=== PATIENT | female | born 1970 | race Caucasian/White ===

== ENCOUNTER → 2016-12-12 | Outpatient (CLI) | payer OTHER ==
--- NOTE | 2016-12-13 11:46 | MR ---
MRI of the Right Elbow, Without Contrast HISTORY: Evaluate for lateral epicondylitis. TECHNIQUE: Axial, sagittal, and coronal MR sequences of the right elbow are obtained. FINDINGS: There is mild focal increased T2 signal within the common extensor tendon at the lateral ep icondylar origin compatible with tendinosis and minimal interstitial partial tear. The radial collate ral ligament is intact. There is moderate focal chondral thinning and subchondral bone marrow change involving the posterior articular cartilage of the radial head, grade 2 severity. Medially, the ulnar collateral ligament is intact. The common flexor tendon is intact. Articular cart ilage of the medial compartment of the elbow is normal. Distal triceps and biceps tendons are intact. The lateral ulnar collateral ligament is intact. IMPRESSION: 1. Tendinosis and mild interstitial partial tear common extensor tendon at the lateral epicondylar or igin. 2. Moderate chondral thinning involving the posterior articular cartilage of the radial head.
== END ==
LOC: FIMAGING 18:41
PROVIDERS: ATTEND Orthopaedic Surgery Hand Surgery
DX: M77.11 Lateral epicondylitis, right elbow (principal); M94.8X8 Other specified disorders of cartilage, other site

== ENCOUNTER 2017-01-21 05:44 | Day surgery (SDC) | payer OTHER ==
[2017-01-21] MEDS ORDERED: LIDOCAINE 1% 5 ML SDV ONE (05:50)
[2017-01-21] MEDS ORDERED: LIDOCAINE 1% 5 ML SDV ID PRN (06:44)
[2017-01-21] MEDS ORDERED: LR 1,000 ML IV ONE (06:44)
[2017-01-21] MEDS ORDERED: SKIN ADHESIVE (DERMABOND) 1 EACH TP ONE (06:59)
[2017-01-21] MEDS ORDERED: LIDOCAINE 1% 30 ML SDV ONE (06:59)
[2017-01-21] MEDS ORDERED: BUPIVACAINE 0.5% 30 ML SDV ONE (06:59)
[2017-01-21] MEDS ORDERED: POLYMYXIN B SULFATE 500,000 UNIT/10 ML SYR IRR ONE (06:59)
[2017-01-21] MEDS ORDERED: BACITRACIN 50,000 UNITS/10 ML SYR IRR ONE (06:59)
[2017-01-21] MEDS ORDERED: LIDOCAINE 2% 5 ML SDV ONE (07:10)
[2017-01-21] MEDS ORDERED: GLYCOPYRROLATE 0.2 MG/1 ML VIAL ONE (07:10)
[2017-01-21] MEDS ORDERED: METOCLOPRAMIDE 10 MG/2 ML VIAL ONE (07:10)
[2017-01-21] MEDS ORDERED: PROPOFOL 200 MG/20 ML VIAL ONE (07:11)
[2017-01-21] MEDS ORDERED: fentaNYL 100 MCG/2 ML INJ ONE (07:11)
[2017-01-21] MEDS ORDERED: MIDAZOLAM 2 MG/2 ML VIAL ONE (07:11)
[2017-01-21] MEDS ORDERED: CEFAZOLIN 2 GM/DEXTROSE/100 ML BAG IV ONE (07:14)
[2017-01-21] MEDS ORDERED: ceFAZolin 2 GM/DEXTROSE 100 ML IV ONE (07:30)
[2017-01-21] MEDS ORDERED: DEXAMETHASONE 4 MG/ML VIAL ONE (07:34)
[2017-01-21] MEDS ORDERED: ONDANSETRON 4 MG/2 ML VIAL ONE (07:34)
[2017-01-21] MEDS ORDERED: OXYCODONE/APAP 5/325 TAB ONE (09:43)
--- NOTE | 2017-01-22 01:40 | GOP ---
DATE OF OPERATION: 01/21/2017 SURGEON: Rico Carlin MD PHYSICAL CHEMISTRY PROFESSOR: None. PREOPERATIVE DIAGNOSIS: Right lateral epicondylitis. POSTOPERATIVE DIAGNOSIS: Right lateral epicondylitis. PROCEDURE PERFORMED: Right lateral epicondylar debridement with repair of the common extensor tendo n origin. FINDINGS: ESTIMATED BLOOD LOSS: 1 cc. DESCRIPTION OF PROCEDURE: This is a very pleasant, 46-year-old female, who underwent a right latera l epicondylar debridement with repair of the common extensor tendon origin. COMPLICATIONS: None. IMPLANTS: Biomet 2.9 mm Juggernaut suture anchor. TOURNIQUET TIME: 37 minutes at 250 mmHg. /[id number]/MODL
== END 2017-01-21 10:15 | disposition home or self-care (01) ==
LOC: FSGY 05:44
PROVIDERS: ATTEND Orthopaedic Surgery Hand Surgery
PROC: 0LQ30ZZ Repair Right Upper Arm Tendon, Open Approach (ICD-10-PCS; principal; 2017-01-21 07:18)
DX: M77.11 Lateral epicondylitis, right elbow (principal)
CPT/HCPCS: C1713; J0690; J1100; J2250; J2405; J2704; J2765; J3010

== ENCOUNTER → 2017-03-18 | Outpatient (CLI) | payer OTHER | LOC: BRMIMAGING 13:55 | PROVIDERS: ATTEND Nurse Practitioner | DX: M85.80 Other specified disorders of bone density and structure, unspecified site (principal); Z82.62 Family history of osteoporosis ==